=== PATIENT | female | born 1995 | race African-American/Black ===

== ENCOUNTER 2018-02-11 21:48 | Emergency (ER) | payer MEDICAID, SELFPAY | END 2018-02-11 22:30 | disposition home or self-care (01) | LOC: MADERS 21:48 | DX: O98.819 Other maternal infectious and parasitic diseases complicating pregnancy, unspecified trimester (principal); B88.8 Other specified infestations | CPT/HCPCS: 99282 ==

== ENCOUNTER 2018-09-18 11:59 | Emergency (ER) | payer OTHER ==
[~2018-09-18 11:59] MED LIST: Iopamidol 370 76% 100 ML VIAL ONE
[2018-09-18 13:10] LABS: #Eosinphils 0.2 thou/uL (0.0-0.7); #Lymphocytes 1.9 thou/uL (1.20-3.40); #Monocytes 0.2 thou/uL (0.11-0.59); #Neutrophils 2.3 thou/uL (1.40-6.50); %Basophils 0.8 % (0.0-1.0); %Eosinophils 3.5 % (0.0-10.0); %Monocytes 5.2 % (0.0-10.0); %Neutrophils 49.6 % (42.0-75.0); Hemoglobin 12.3 g/dL (12.0-16.0); Mean Corpuscular HGB CONC 32.3 g/dL (32.0-36.0); Mean Corpuscular Hemoglobin 27.7 pg (27.0-31.0); Mean Corpuscular Volume 85.6 fL (78.0-98.0); Mean Platelet Volume 7.2 fL (7.4-10.4); Platelet Count 222 thou/uL (130-400); RBC Distribution Width 14.4 % (11.5-14.5); Red Blood Cell (RBC) Count 4.45 mill/uL (4.20-5.40); White Blood Cell (WBC) Count 4.6 thou/uL (4.8-10.8)
[2018-09-18 13:26] LABS: BHCG - Serum Negative (NEGATIVE); Pregs Control Background? CLEAR/WHITE (CLR/WHITE); Pregs Control Bar Appear? YES (CONTROL BAR)
[2018-09-18 13:28] LABS: ALT (SGPT) 9 U/L (8-55); AST (SGOT) 11 U/L (5-34); Albumin 4.1 g/dL (3.5-5.0); Alkaline Phosphatase 43 U/L (40-150); Anion Gap 12 mmol/L (10-20); BUN (Urea Nitrogen) 11 mg/dL (7.0-18.7); Bilirubin, Total 0.7 mg/dL (0.2-1.2); Calc. Creatinine Clearance 0 mL/min (70-130); Calcium 9.3 mg/dL (7.8-10.44); Carbon Dioxide 25 mmol/L (22-29); Chloride 108 mmol/L (98-107); Estimated GFR-MDRD Greater than 90; Globulin 3.5 g/dL (2.4-3.5); Glucose 79 mg/dL (70-105); Potassium 3.7 mmol/L (3.5-5.1); Protein, Total 7.6 g/dL (6.0-8.3); Sodium 141 mmol/L (136-145)
[2018-09-18 13:48] LABS: Thyroid Stimulating Hormone 40.9127 uIU/mL (0.35-4.94)
--- NOTE | 2018-09-18 13:53 | CT ---
CT NECK SOFT TISSUES, WITH CONTRAST: CLINICAL INDICATION:Swelling, pharyngitis, pain COMPARISON: No prior comparison imaging FINDINGS: Aerodigestive tract:Narrowing of the oropharyngeal airway due to enlarged palatine tonsils with heter ogeneity, bilaterally. Soft tissue prominence of the soft palate. Focal effacement of the left vallecula and left piriform sinus. Parotid gland: No intrinsic mass, or inflammation. Submandibular glands:No intrinsic mass, or inflammation. Soft tissue mass:None Lymph nodes: There are bilateral mildly enlarged posterior cervical chain lymph nodes. Thyroid gland:Diffuse enlargement bilaterally, with heterogeneous density. Incidental findings:None of significance. IMPRESSION: 1. Heterogeneous enlarged bilateral palatine tonsils likely related to infectious/inflammatory tonsi llitis. No discrete abscess. Recommend correlation with direct visualization as well as confirmation of resolution upon completion of treatment regimen. 2. Effacement of left vallecula and piriform sinus which may relate to edema, given the above-describ ed findings. Correlate clinically. 3. Diffusely enlarged thyroid gland. Follow-up thyroid ultrasound is recommended. Transcribed Date/Time: 09/18/2018 3:53 PM
[2018-09-18 18:04] LABS: Free T4 (Free Thyroxine) 0.49 ng/dL (0.70-1.48)
== END 2018-09-18 14:40 | disposition home or self-care (01) ==
LOC: MADERS 11:59
DX: J02.9 Acute pharyngitis, unspecified (principal); E03.9 Hypothyroidism, unspecified
CPT/HCPCS: 36415; 70491; 80053; 84439; 84443; 84481; 84703; 85025; 87081; 87430; Q9967

== ENCOUNTER 2018-11-02 20:33 | Emergency (ER) | payer OTHER ==
[2018-11-02 21:28] LABS: Bilirubin Negative (Negative); Blood, Urine Negative (Negative); Glucose, Urine (Dipstick) Negative (Negative); Leukocyte Moderate (Negative); Nitrite Negative (Negative); Protein, Urine (Dipstick) Negative (Neg-Trace)
[2018-11-02 21:31] LABS: Clarity Hazy (Clear)
[2018-11-02 21:34] LABS: Bacteria/HPF Rare-Few HPF (None Seen); RBC/HPF 0-3 HPF (0-3); WBC/HPF Greater Than 50 HPF (0-3)
[2018-11-02] MEDS ORDERED: cefTRIAXone\\ROCEPHIN 1 GM VIAL ONE (22:14)
[2018-11-02] MEDS ORDERED: Lidocaine 1% 20 ML MDV ONE (22:14)
[2018-11-02] MEDS ORDERED: Azithromycin 250 MG TAB ONE (22:14)
[2018-11-06 04:39] LABS: Chlam.trachomatis by PCR,Urine Not Detected (NotDetected)
== END 2018-11-02 22:58 | disposition home or self-care (01) ==
LOC: MADERS 20:33
DX: N76.0 Acute vaginitis (principal); Z20.2 Contact with and (suspected) exposure to infections with a predominantly sexual mode of transmission; E03.9 Hypothyroidism, unspecified; Z79.899 Other long term (current) drug therapy
CPT/HCPCS: 81003; 81015; 87491; 87591; 96372; 99283; J0696; J2001

== ENCOUNTER 2019-11-25 08:42 | Emergency (ER) | payer MEDICAID, OTHER | END 2019-11-25 09:23 | disposition home or self-care (01) | LOC: MADERS 08:42 | DX: E04.9 Nontoxic goiter, unspecified (principal); E03.9 Hypothyroidism, unspecified; Z79.899 Other long term (current) drug therapy | CPT/HCPCS: 99283 ==

== ENCOUNTER 2021-01-28 18:50 | Emergency (ER) | payer OTHER ==
[2021-01-28 19:20] LABS: Bilirubin Negative (Negative); Blood, Urine Negative (Negative); Clarity Clear (Clear); Glucose, Urine (Dipstick) Negative (Negative); Ketone, Urine Negative (Negative); Leukocyte Negative (Negative); Nitrite Negative (Negative); Protein, Urine (Dipstick) Negative (Neg-Trace); Urobilinogen 0.2 mg/dL (Less than 2); pH, Urine 5.5 (5.0-9.0)
[2021-01-28 19:22] LABS: Specific Gravity, Urine 1.033 (1.002-1.036)
[2021-01-28] MEDS ORDERED: Sulfameth/Trimethoprim DS 800-160mg TAB ONE (19:33)
== END 2021-01-28 19:37 | disposition home or self-care (01) ==
LOC: MADERS 18:50
DX: N30.00 Acute cystitis without hematuria (principal); E03.9 Hypothyroidism, unspecified
CPT/HCPCS: 81003; 87086; 99283

== ENCOUNTER 2021-02-01 02:15 | Emergency (ER) | payer OTHER ==
[2021-02-01 02:49] LABS: Bilirubin Negative (Negative); Blood, Urine Negative (Negative); Clarity Clear (Clear); Glucose, Urine (Dipstick) Negative (Negative); Ketone, Urine Negative (Negative); Leukocyte Trace (Negative); Nitrite Negative (Negative); Protein, Urine (Dipstick) Negative (Neg-Trace); Urobilinogen 0.2 mg/dL (Less than 2)
[2021-02-01 02:51] LABS: Specific Gravity, Urine 1.022 (1.002-1.036)
[2021-02-01 02:53] LABS: Pregnancy Test - Urine (BHCG) Negative (Negative); Pregu Control Background? CLEAR/WHITE (CLR/WHITE); Pregu Control Bar Appear? YES (CONTROL BAR); Specific Gravity 1.022 (1.002-1.036)
[2021-02-01 02:55] LABS: Bacteria/HPF 1+ HPF (None Seen)
[2021-02-01] MEDS ORDERED: metroNIDAZOLE 250 MG TAB ONE (03:50)
[2021-02-02 17:08] LABS: Chlamydia by PCR Not Detected (NotDetected); GC by PCR Not Detected (NotDetected)
== END 2021-02-01 04:00 | disposition home or self-care (01) ==
LOC: MADERS 02:15
DX: N76.0 Acute vaginitis (principal); B96.89 Other specified bacterial agents as the cause of diseases classified elsewhere; E03.9 Hypothyroidism, unspecified
CPT/HCPCS: 81003; 81015; 81025; 87491; 87591; 99283

== ENCOUNTER 2021-03-27 10:49 | Emergency (ER) | payer OTHER ==
[2021-03-27 11:21] LABS: Bilirubin Negative (Negative); Blood, Urine Small (Negative); Clarity Clear (Clear); Glucose, Urine (Dipstick) Negative (Negative); Ketone, Urine Negative (Negative); Leukocyte Negative (Negative); Nitrite Negative (Negative); Protein, Urine (Dipstick) Negative (Neg-Trace); Specific Gravity, Urine 1.015 (1.005-1.030); Urobilinogen 0.2 mg/dL (Less than 2)
[2021-03-27 11:27] LABS: #Eosinphils 0.1 thou/uL (0.0-0.7); #Lymphocytes 1.4 thou/uL (1.20-3.40); #Monocytes 0.2 thou/uL (0.11-0.59); #Neutrophils 1.8 thou/uL (1.40-6.50); %Basophils 0.8 % (0.0-1.0); %Eosinophils 2.5 % (0.0-10.0); %Lymphocytes 40.2 % (21.0-51.0); %Monocytes 5.7 % (0.0-10.0); %Neutrophils 50.9 % (42.0-75.0); Hemoglobin 11.9 g/dL (12.0-16.0); Mean Corpuscular HGB CONC 32.3 g/dL (32.0-36.0); Mean Corpuscular Hemoglobin 28.8 pg (27.0-31.0); Mean Corpuscular Volume 89.1 fL (78.0-98.0); Mean Platelet Volume 7.5 fL (7.4-10.4); Platelet Count 221 thou/uL (130-400); RBC Distribution Width 11.9 % (11.5-14.5); Red Blood Cell (RBC) Count 4.12 mill/uL (4.20-5.40); White Blood Cell (WBC) Count 3.4 thou/uL (4.8-10.8)
[2021-03-27 11:28] LABS: Bacteria/HPF Rare-Few HPF (None Seen); RBC/HPF 0-3 HPF (0-3); Squamous Epithelial 0-3 HPF (0-3); WBC/HPF 0-3 HPF (0-3)
[2021-03-27 11:29] LABS: Mucous/LPF 1+ LPF (<2+)
[2021-03-27 11:30] LABS: Amphetamine Not Detected (NotDetected); Barbiturates Screen Not Detected (NotDetected); Benzodiazepine Screen Not Detected (NotDetected); Cocaine Metabolite Screen Not Detected (NotDetected); Medtox Control Line Valid? VALID (VALID); Methadone Not Detected (NotDetected); Methamphetamine Not Detected (NotDetected); Opiate Screen Not Detected (NotDetected); Oxycodone Screen Not Detected (NotDetected); Phencyclidine (PCP) Not Detected (NotDetected); Pregnancy Test - Urine (BHCG) Negative (Negative); Pregu Control Background? CLEAR/WHITE (CLR/WHITE); Pregu Control Bar Appear? YES (CONTROL BAR); Specific Gravity 1.015 (1.002-1.036); THC/Cannabinoid Screen Not Detected (NotDetected); Tricyclic Screen Not Detected (NotDetected)
[2021-03-27 11:31] LABS: ALT (SGPT) 9 U/L (8-55); AST (SGOT) 13 U/L (5-34); Albumin 3.6 g/dL (3.5-5.0); Alkaline Phosphatase 32 U/L (40-110); Anion Gap 10 mmol/L (10-20); BUN (Urea Nitrogen) 8 mg/dL (7.0-18.7); Bilirubin, Total 0.9 mg/dL (0.2-1.2); CK (CPK) 80 U/L (29-168); Calc. Creatinine Clearance 0 mL/min (70-130); Calcium 8.3 mg/dL (7.8-10.44); Carbon Dioxide 25 mmol/L (22-29); Chloride 109 mmol/L (98-107); Glucose 97 mg/dL (70-105); Potassium 3.5 mmol/L (3.5-5.1); Protein, Total 6.6 g/dL (6.0-8.3); Sodium 140 mmol/L (136-145)
== END 2021-03-27 11:53 | disposition home or self-care (01) ==
LOC: MADERS 10:49
DX: E86.0 Dehydration (principal); D64.9 Anemia, unspecified; R55 Syncope and collapse; E03.9 Hypothyroidism, unspecified
CPT/HCPCS: 36415; 71045; 80053; 80306; 81003; 81015; 81025; 82550; 84484; 85025; 94760

== ENCOUNTER 2021-06-17 21:22 | Emergency (ER) | payer OTHER | END 2021-06-17 23:20 | disposition home or self-care (01) | LOC: MADERS 21:22 | DX: S39.011A Strain of muscle, fascia and tendon of abdomen, initial encounter (principal); W19.XXXA Unspecified fall, initial encounter | CPT/HCPCS: 72170 ==

== ENCOUNTER 2021-07-03 18:43 | Emergency (ER) | payer OTHER | END 2021-07-03 19:17 | disposition home or self-care (01) | LOC: MADERS 18:43 | DX: S73.101A Unspecified sprain of right hip, initial encounter (principal); E03.9 Hypothyroidism, unspecified; W00.0XXA Fall on same level due to ice and snow, initial encounter; Z79.899 Other long term (current) drug therapy | CPT/HCPCS: 99283 ==

== ENCOUNTER 2022-06-03 23:32 | Emergency (ER) | payer OTHER ==
[2022-06-03] MEDS ORDERED: predniSONE 20 MG TAB ONE (23:55)
== END 2022-06-04 00:20 | disposition home or self-care (01) ==
LOC: MADERS 23:32
DX: S62.664A Nondisplaced fracture of distal phalanx of right ring finger, initial encounter for closed fracture (principal); J02.9 Acute pharyngitis, unspecified; E03.9 Hypothyroidism, unspecified; X58.XXXA Exposure to other specified factors, initial encounter; Y92.69 Other specified industrial and construction area as the place of occurrence of the external cause
CPT/HCPCS: 87081; 87430; J7512